=== PATIENT | female | born 1990 | race Caucasian/White ===

== ENCOUNTER 2023-10-30 01:39 | Inpatient (IN) | payer OTHER, SELFPAY ==
[2023-10-29 20:01] VITALS: BP 148/81
[2023-10-29 21:35] VITALS: BMI 25.5
[2023-10-29 21:50] LABS: % Basophils 0.4 % (0-2); % Eosinophils 0.8 % (0-6); % Immature Granulocytes 0.3 % (0-0.5); % Lymphocytes 8.8 % (20.5-51.1); % Monocytes 7.8 % (1.7-9.3); % Neutrophils 81.9 % (42.2-75.2); Absolute Eosinophils 0.1 10^3/uL (0-0.7); Absolute Lymphocytes 0.8 10^3/uL (1.2-3.4); Absolute Monocytes 0.7 10^3/uL (0.1-0.6); Absolute Neutrophils 7.5 10^3/uL (1.4-6.5); Mean Corp Hgb Conc. 36.7 g/dL (33.0-37.0); Mean Corpuscular Hgb 32.1 pg (27.0-31.0); Mean Corpuscular Volume 87.5 fL (81.0-99.0); Mean Platelet Volume 9.9 fL (7.4-10.4); Nucleated Red Blood Cells % 0 %; Platelet Count 183 10^3/uL (130-400); Red Blood Cell Count 3.43 10^6/uL (4.20-5.40); Red Cell Dist. Width 11.2 % (11.5-14.5); White Blood Cell Count 9.2 10^3/uL (4.8-10.8)
[2023-10-29 21:51] LABS: Urine Albumin 1+ (Neg - Trace); Urine Bilirubin Negative (Negative); Urine Character Very Cloudy (Clear); Urine Color Yellow; Urine Glucose Negative (Negative); Urine Ketone Negative (Negative); Urine Leukocyte 2+ (Negative); Urine Nitrite Positive (Negative); Urine Occult Blood 1+ (Negative); Urine Urobilinogen 1+ (Neg - 1+)
[2023-10-29 22:01] LABS: Urine White Cell >100 /HPF (0-5)
[2023-10-29 22:03] LABS: Urine Bacteria Moderate (Negative)
[2023-10-29 22:06] LABS: ALT (SGPT) 28 U/L (0-35); AST (SGOT) 27 U/L (14-36); Albumin 3.7 g/dl (3.5-5.0); Alkaline Phosphatase 54 U/L (38-126); Blood Urea Nitrogen 14 mg/dl (7-17); Calcium 8.5 mg/dl (8.4-10.2); Carbon Dioxide 24 mmol/L (22-30); Chloride 103 mmol/L (98-107); Estimated Creatinine Clearance 88 ml/min; Glucose 114 mg/dl (70-99); Potassium 3.7 mmol/L (3.5-5.1); Sodium 132 mmol/L (135-145); Total Bilirubin 0.8 mg/dl (0.2-1.3); Total Protein 6.4 g/dl (6.3-8.2); eGFR > 60.00
[2023-10-29 22:59] LABS: HCG, Serum Qualitative Screen Negative
[2023-10-29] MEDS: TORADOL 30 MG IV (23:27)
[2023-10-29] MEDS: ZOFRAN 4 MG IV (23:28)
[2023-10-29] MEDS: NSS 1000 IV (23:30)
--- NOTE | 2023-10-29 23:32 | ED.GENMED ---
History of Present Illness
General
Chief Complaint: Back Pain
Source: patient
Exam Limitations: none
Time Seen by Provider: 10/29/23 21:30
Nursing documentation reviewed up to this point in time: agreed with
Travel History
Have you had any contact with someone who has COVID-19?: No
Do you have any symptoms of coronavirus? Fever > 100 degrees, chills, cough, shortness of breath, sore throat, loss of taste or smell, muscle aches, or headache?: No
History of Present Illness
History of Present Illness:
Patient to ED with complaint of bilateral lower back pain. Symptoms started 2 days ago. Reports feeling feverish but did not take temp. +chills. No abdominal pain. States she was admitted her 1.5yrs ago for sepsis due to UTI/kidney stones and
her symptoms now are similar to that event. Brought to ED by spouse for eval. +nausea.
Past History
Past History
ED Past Medical History: HTN, NIDDM and Other (Idiopathic pancreatitis, drug abuse)
Social History
Tobacco: Non-smoker
Alcohol: None
Drug: Narcotics and IVDA
Personal: Single
Phy Exam
General Physical Exam
General Presentation: moderate distress
General age: appears stated age
General Skin: warm and dry
General Habitus: normal
General Mental: alert
Pulmonary Exam
Pulmonary Exam: lungs clear and no respiratory distress
Gastrointestinal Exam
Gastrointestinal Exam: normal bowel sounds, non tender, soft, no organomegaly, no pulsatile mass, non distended and cva tenderness (Bilaterally)
Musculoskeletal Exam
Musculoskeletal Exam: full ROM and neuro vasc intact
Skin Exam
Skin Exam: normal color, warm/dry and no rash
Psychiatric Exam
Psychiatric Exam: normal mood/affect
Course
Orders/Labs/Results
Orders:
Orders
10/29/23 21:43
Complete Blood Count/With Diff Urgent
Comprehensive Metabolic Panel Urgent
HCG, Serum Qualitative Screen Urgent
Comment: ADD ON
Urinalysis Reflex To Culture Urgent
Date Specimen was Collected: 10/29/23
Time Specimen was Collected: 21:40
Urine Microscopic Reflex Cult Urgent
Urine Culture Urgent
CHON Source: U
Specimen Description:
Date Specimen was Collected: 10/29/23
Time Specimen was Collected: 21:40
10/29/23 22:11
CT Abd/pel Without Iv Or Oral Urgent
Comment:
Reason For Exam: flank pain, hx renal stones
10/29/23 22:42
Add On- LAB Urgent
Tests Added?: serum HCG qualitative
10/29/23 23:24
Ketorolac [Toradol] 30 mg IV NOW STA
Ondansetron Injectable [Zofran] 4 mg IV NOW STA
10/29/23 23:30
0.9% Sodium Chloride 1000 ml [Nss] 1,000 ml IV BOLUS
0.9% Sodium Chloride 1000 ml [Nss] 1,000 ml IV BOLUS
10/29/23 23:32
LevoFLOXacin 750 MG/150 ML [Levaquin] 750 mg in 150 ml IV NOW
10/29/23 23:49
Blood Culture Q30M
CHON Source: Blood/Venous
Specimen Description:
10/30/23 00:12
Blood Culture Q30M
CHON Source: Blood/Venous
Specimen Description:
10/30/23 01:09
Admit/Transfer Patient As Directed
Co-Sign Provider:
Level of Care: Inpatient admission
Assign to:: Medical/Surgical
Physician / Group: Jd
Diagnosis: Pyelonephritis
Reason for Hospitalization: Pyelonephritis
Expected length of stay greater than two midnights?: Yes
ELOS- Estimated Length of Stay in days: 2
I certify the patient meets the requirements for IP care: Yes
10/30/23 01:10
Code Status As Directed
Resuscitation Status: Full Code
10/30/23 02:34
0.9% Sodium Chloride 1000 ml [Nss] 1,000 ml IV 125 mls/hr
Acetaminophen [Tylenol] 650 mg PO Q4HPRN PRN
Dextrose 50%-Water [Dextrose 50% Syringe] 12.5 grams IV [id number] PRN
Glucagon [GlucaGen] 1 mg IM PRN PRN
Ketorolac [Toradol] 15 mg IV Q6HPRN PRN
Prochlorperazine [Compazine] 5 mg IV Q6HPRN PRN
10/30/23 02:34
Activity As Directed
Activity Level: Ambulate
Bedside Glucose Monitoring As Directed
Frequency: AC&HS
Comment: Change to q6h if pt on TPN, tube feeding or not eating
I/O [Intake/ Output] As Directed
Frequency: Per unit guidelines
Pneumatic Compression Sleeves As Directed
Type: Knee high
Vital Signs As Directed
Frequency: Per unit guidelines
DX Deep Vein Thrombosis Video Routine
10/30/23 05:44
Basic Metabolic Panel IN AM
Complete Blood Count/No Diff IN AM
Glycohemoglobin (HgbA1c) IN AM
10/30/23 Breakfast
Regular
At Your Request: Limited Participation
10/30/23 07:30
Insulin Aspart Corrective Low [Novolog Flexpen-Low Resistance] See Protocol SC AC
10/30/23 08:00
Sertraline HCl [Zoloft] 50 mg PO DAILY
10/31/23 00:00
LevoFLOXacin 500 MG/100 ML [Levaquin] 500 mg in 100 ml IV Q24H
Abnormal Lab Results
10/29/23
21:43
RBC 3.43 L 10^6/uL
(4.20-5.40)
Hgb 11.0 L g/dL
(12.0-16.0)
Hct 30.0 L %
(37.0-47.0)
MCH 32.1 H pg
(27.0-31.0)
RDW 11.2 L %
(11.5-14.5)
Absolute Neuts (auto) 7.5 H 10^3/uL
(1.4-6.5)
Absolute Lymphs (auto) 0.8 L 10^3/uL
(1.2-3.4)
Absolute Monos (auto) 0.7 H 10^3/uL
(0.1-0.6)
Neutrophils % 81.9 H %
(42.2-75.2)
Lymphocytes % 8.8 L %
(20.5-51.1)
Sodium 132 L mmol/L
(135-145)
Glucose 114 H mg/dl
(70-99)
Ur Occult Blood Reflex 1+ A
(Negative)
Urine Nitrite (Reflex) Positive A
(Negative)
Leukocyte Esterase Rfl 2+ A
(Negative)
Urine RBC 3-6 A /HPF
(0-2)
Urine WBC (Reflex) >100 A /HPF
(0-5)
Urine Bacteria (Reflex) Moderate A
(Negative)
Urine Albumin (Reflex) 1+ A
(Neg - Trace)
10/29/23 21:43
10/29/23 21:43
Vital Signs
Initial and Last Documented VS:
Initial Vital Signs
Temp Pulse Resp BP Pulse Ox
99.0 F 127 18 148/81 97
10/29/23 20:01 10/29/23 20:01 10/29/23 20:01 10/29/23 20:01 10/29/23 20:01
Last Documented Vital Signs
Temp Pulse Resp BP Pulse Ox
98.9 F 105 18 121/74 97
10/30/23 15:00 10/30/23 15:00 10/30/23 15:00 10/30/23 15:00 10/30/23 15:00
*Critical Care Note
Total Time (30-74mins, 75-104mins- exclusive of procedures): Not Applicable
Update Note
Update Note:
Patient to ED wtih complaint of bilateral lower back pain, fever/chills. Vomiting in dept. Temp 100.8 max in ED. UA consistent with UTI. Placed on levaquin in dept. Due to fever/chills, vomiting, will admit to hospitalist at this time.
ED Attending Note
-
Portions of this chart may have been created with voice recognition software.� Occasional wrong word or��sound alike� substitutions may have occurred due to the inherent limitations of voice recognition software.
Discharge Plan
Departure
Patient Disposition: Admit
Date of Disposition: 10/29/23
Time of Disposition: 23:59
Presentation/result/management discussed w/ accepting MD/DO: Hospitalist
Patient with high blood pressure during this ER visit?: No
Condition: Fair
Covid-19: Not Applicable
Discharge Problem:
Pyelonephritis
Interventions
Interventions:
*Risk Screen - Suicide Last Done: 10/30/23 02:14
*General Assessment Last Done: 10/29/23 20:01
*Neglect/Abuse Screening Last Done: 10/29/23 20:01
ED- Fall Risk Assessment Last Done: 10/29/23 21:36
*ED COVID-19 Vaccine History Last Done: 10/29/23 20:01
*Nursing Disposition Last Done: 10/30/23 02:02
ED-Musculoskeletal Assessment Last Done: 10/29/23 23:58
Discharge Date and Time
Discharge Date/Time: 10/30/23 02:02
[2023-10-29 23:55] VITALS: BP 105/55
[2023-10-30] MEDS: LEVAQUIN 150 IV (00:15)
--- NOTE | 2023-10-30 01:13 | HPS.HSE ---
Family Physician
-
Family Physician: Marcus Wilson
Chief Complaint
-
Fevers / chills
History of Present Illness
Patient is a 33y F with PMH significant for nephrolithiasis and pyelonephritis who presents to ED complaining of bilateral flank pain, N/V and fevers / chills. Patient states that her symptoms started yesterday with generalized fatigue and mild
headache. In the evening, she developed shaking chills. Today she noted bilateral flank pain, shaking chills, diaphoresis. In the ED, she had a single episode of N/V.
Patient notes that her symptoms are similar if less severe than those she experienced in 2021 with ureterolithiasis, pyelo and sepsis.
Medical History
Past Medical History
Past Medical History: Reports Other
Additional Past Medical History:
DM-II
Nephrolithiasis
Hypertension
Anxiety / Depression
Pancreatitis
Past Surgical History: Reports Other
Additional Past Surgical History:
Right Ureteroscopy / Stent (2021)
Social History
Tobacco: Vaping (Daily nicotine vaping.)
Alcohol: Former (Sober since 08/2020.)
Drug: Former User (Sober since 08/2020. History of opiate / cocaine use.)
Family History
Family History: Other (PGF / MGF: DM Sister: Aortic Valve Disease Brother: Nephrolithiasis)
Allergies / Home Medications
Allergies reflects when Allergies were last updated in [facility].
Home Medications with original date entered in [facility]
Allergy/Medication List:
Allergies
Allergy/AdvReac Type Severity Reaction Status Date / Time
cephalexin monohydrate Allergy Rash Verified 10/29/23 23:34
[From Keflex]
Home Medications
sertraline 50 mg tablet 50 mg PO DAILY Mental Health/Anxiety 05/03/22
ibuprofen 400 mg tablet 400 mg PO Q6H PRN pain 09/12/22
Wellbutrin XL PO DAILY 10/29/23
tirzepatide 10 mg/0.5 mL subcutaneous pen injector (Mounjaro) 10 mg SC QWEEK 10/29/23
Review of Systems
-
History Source: Patient
A 12 point ROS was completed and negative except as noted: Yes
Constitutional: Reports Fever, Fatigue and Chills
EENT: Denies Sore Throat
Respiratory: Denies Cough or Trouble Breathing
Cardiac: Reports Diaphoresis; Denies Chest Pain or Palpitations
Abdomen/GI: Reports Nausea and Vomiting; Denies Abdominal Pain, Diarrhea, Constipated or Anorexia
: Reports Flank Pain; Denies Dysuria
Musculoskeletal: Denies Joint Pain or Edema
Neurological: Reports Headache; Denies Dizzy
Psych: Denies Depression or Anxiety
Physical Exam
Vital Signs
Vital Signs
Temp Pulse Resp BP Pulse Ox
100.7 F H 118 18 105/55 96
10/29/23 23:35 10/29/23 23:55 10/29/23 23:55 10/29/23 23:55 10/29/23 23:55
Physical Exam
General: Other (33y F in no acute distress.)
HEENT: Moist mucous membranes and PERRLA
Respiratory: Clear; No Wheezes, Rales or Rhonchi
Cardiac: S1/S2 and Regular Rhythm; No Murmur
GI: Soft, Non Distended, Normal Bowel Sounds and Other (Mildly / diffusely tender. No rebound / guarding.)
Genito-urinary: No costovertebral tender
Musculoskeletal: No Clubbing, No Cyanosis and No Edema
Neuro: AO x 3
Laboratory Results
-
10/29/23 21:43
10/29/23 21:43
Laboratory Results
Total Bilirubin 0.8 mg/dl (0.2-1.3) 10/29/23 21:43
AST 27 U/L (14-36) 10/29/23 21:43
ALT 28 U/L (0-35) 10/29/23 21:43
Alkaline Phosphatase 54 U/L (38-126) 10/29/23 21:43
Impression/Plan
-
A/P: Patient is a 33y F with PMH significant for kidney stones who presents to ED complaining of fevers / chills and flank pain.
Pyelonephritis
- Admit for further evaluation and treatment.
- Patient presents with fever, tachycardia and UA suggestive of infection.
- CT shows some stranding - particularly on the R - but no ureteral stones / obstruction / etc.
- IV abx until fever-free x 24 hours.
- Supportive care including antiemetics, pain control (try to avoid opiates), etc.
- Follow for clinical improvement.
- Follow-up culture data and adjust treatment accordingly.
DM-II
- Stable. On only Mounjaro weekly.
- Follow glucose and cover with SSI as needed during stay.
- Update A1C.
Benign Hypertension
- BP is low / normal at present.
- Hold losartan acutely and follow BP for changes.
Anxiety / Depression
- Stable. Continue sertraline.
- Resume Wellbutrin once dose can be confirmed.
DVT Prophylaxis: SCDs
Code Status: Full
[2023-10-30 02:30] VITALS: BP 108/73
[2023-10-30 02:39] VITALS: BMI 24.8
[2023-10-30] MEDS: NSS 1000 IV ×3 (03:17→18:35)
[2023-10-30] MEDS: COMPAZINE 5 MG IV (05:52)
[2023-10-30] MEDS: TORADOL 15 MG IV ×3 (05:52→22:04)
[2023-10-30] MEDS: TYLENOL 650 MG PO ×3 (06:05→22:51)
[2023-10-30 06:10] LABS: Hematocrit 30.6 % (37.0-47.0); Hemoglobin 10.8 g/dL (12.0-16.0); Mean Corp Hgb Conc. 35.3 g/dL (33.0-37.0); Mean Corpuscular Hgb 31.7 pg (27.0-31.0); Mean Corpuscular Volume 89.7 fL (81.0-99.0); Mean Platelet Volume 10.3 fL (7.4-10.4); Platelet Count 175 10^3/uL (130-400); Red Blood Cell Count 3.41 10^6/uL (4.20-5.40); Red Cell Dist. Width 11.2 % (11.5-14.5); White Blood Cell Count 10.5 10^3/uL (4.8-10.8)
[2023-10-30 06:44] LABS: Blood Urea Nitrogen 13 mg/dl (7-17); Calcium 8.2 mg/dl (8.4-10.2); Carbon Dioxide 26 mmol/L (22-30); Chloride 105 mmol/L (98-107); Estimated Creatinine Clearance 88 ml/min; Glucose 114 mg/dl (70-99); Potassium 4.3 mmol/L (3.5-5.1); Sodium 135 mmol/L (135-145); eGFR > 60.00
[2023-10-30 07:38] LABS: Glucose - Point of Care 125 mg/dl (70-99)
[2023-10-30] MEDS: ZOLOFT 50 MG PO (07:39)
[2023-10-30 08:00] VITALS: BP 99/66
[2023-10-30 08:44] LABS: Glycohemoglobin (HgbA1c) 5.4 % (4.0-5.6)
--- NOTE | 2023-10-30 12:04 | CON.ID ---
Consultation
-
Date/Time Consultation Requested: 10/30/23 11:31
Date/Time Consultation Performed: 10/30/23 12:04
Requesting Provider: Dr Patterson
Performing Provider: Dr Recio
Reason for Consultation: fever
Chief Complaint / Past History
Chief Complaint
fever and chills
History of Present Illness
Ms Cagle is a 33 year old female with history of nephrolithiasis/pyelonephritis, pancreatitis, DM2, who presented here today for bilateral flank pain, nausea, vomiting fevers and chills. Syptoms began day before with fatigue and mild headache -
then had rigoros overnight. Today with flank pain chills and then progressed to nausea/vomiting.
Since arrival here Tmax 102.1 orally, bp stable initially stable - soft this afternoon, wbc 9.5 on arrival 10.5 today, hgb 10.8, plt 175, L shift noted on arrival, cr 0.8, hcg neg, ua gross pyuria, moderate bacteria, CT ap without oral or IV
contrast: nonobstructing renal stones, minimal R perinephric stranding, no history of MDROs on file, blood cultures in progress as is the urine culture. H/o rash with keflex - on levofloxacin IV. ID is consulted for assistance with management.
Past History
Additional Past Medical History:
DM-II
Nephrolithiasis
Hypertension
Anxiety / Depression
Pancreatitis
obesity on monjaro
Additional Past Surgical History:
Right Ureteroscopy / Stent (2021)
Allergy History:
cephalexin monohydrate [From Keflex] Allergy (Verified 10/29/23 23:34)
Rash
Medications Reviewed: Yes
Social History
Tobacco: Vaping (daily)
Alcohol: Former
Drug: Former User
Family History
Family History: Not Pertinent
Review of Systems
Review of Systems
General: Fever and Chills
All systems: All other systems were reviewed and were negative
Vital Signs
Temp Pulse Resp BP Pulse Ox
98.0 F 108 16 99/66 98
10/30/23 08:00 10/30/23 08:00 10/30/23 08:00 10/30/23 08:00 10/30/23 08:00
Physical Exam
Physical Exam
Constitutional: No Acute Distress
Cardiovascular: Regular Rate and S1/S2; Negative Murmur or Rub
Pulmonary: Clear and Symmetric; Negative Wheezes, Rales or Rhonchi
Gastrointestinal: Soft, Non Tender, Non Distended and Normal Bowel Sounds
Genito-Urinary: Negative Suprapubic Tenderness or CVA Tenderness
Skin: Warm and Dry; Negative Rash or Jaundice
Lab / Diagnostic Study Results
10/30/23 05:44
10/30/23 05:44
Abs Immat Gran (auto) 0.0 10^3/uL (0-0.05) 10/29/23 21:43
Absolute Neuts (auto) 7.5 10^3/uL (1.4-6.5) H 10/29/23 21:43
Absolute Lymphs (auto) 0.8 10^3/uL (1.2-3.4) L 10/29/23 21:43
Absolute Monos (auto) 0.7 10^3/uL (0.1-0.6) H 10/29/23 21:43
Absolute Basos (auto) 0.0 10^3/uL (0-0.2) 10/29/23 21:43
Immature Gran % 0.3 % (0-0.5) 10/29/23 21:43
Neutrophils % 81.9 % (42.2-75.2) H 10/29/23 21:43
Lymphocytes % 8.8 % (20.5-51.1) L 10/29/23 21:43
Monocytes % 7.8 % (1.7-9.3) 10/29/23 21:43
Eosinophils % 0.8 % (0-6) 10/29/23 21:43
Basophils % 0.4 % (0-2) 10/29/23 21:43
Microbiology Results
Micro:
10/30/23 00:12 Blood Culture - Pending
Blood/Venous
10/29/23 23:49 Blood Culture - Pending
Blood/Venous
10/29/23 21:43 Urine Culture - Pending
Urine
Assessment / Plan
Mild Pyelonephritis
H/o rash with keflex
- 'I feel a lot better'
- follow blood and urine cultures
- agree with levaquin - oral route is equilivant to IV - switched
- check qtc - if <500 then could consider discharge in the am with a 7 day total course
- follow
[2023-10-30 14:19] LABS: Glucose - Point of Care 101 mg/dl (70-99)
[2023-10-30 14:23] LABS: Iron 27 ug/dl (37-170)
[2023-10-30 14:32] LABS: Percent Saturation 9 % (20-50); Total Iron Binding Capacity 284 ug/dl (265-497)
[2023-10-30 15:00] VITALS: BP 121/74
--- NOTE | 2023-10-30 15:07 | W.PN.HOSP.TC ---
Today's Communication/Plan
-
AB
IVF
Need to verify meds
Assessment / Plan
Assessment / Plan
Patient is a 33y F with PMH significant for kidney stones who presents to ED complaining of fevers / chills and flank pain.
#Pyelonephritis
�- CT shows stranding - particularly on the R - but no ureteral stones / obstruction
�- Levaquin 750 daily per ID
�- Supportive care including antiemetics, pain control (try to avoid opiates), etc.
�- Follow for clinical improvement.
�- Follow-up culture data and adjust treatment accordingly.
-History of lithotripsy with stent in the past
- ID eval
#DM-II
�- Stable.� On only Mounjaro weekly.
�- Follow glucose and cover with SSI as needed during stay.
�- Update A1C.
#Benign Hypertension
�- BP is low / normal at present.
�- Hold losartan acutely and follow BP for changes.
#History of pancreatitis in the past
#Anxiety / Depression
�- Stable.� Continue sertraline.
�- Resume Wellbutrin once dose can be confirmed.
#DVT Prophylaxis:� Lovenox
#Code Status:� Full
Anticipated Discharge: 24 - 48 hours
Subjective/Interval History
-
Date of Service: October 30, 2023
Objective Data
-
Labs:
Laboratory Results
10/30/23
05:44
WBC 10.5
Hgb 10.8 L
Hct 30.6 L
Plt Count 175
Sodium 135
Potassium 4.3
Chloride 105
Carbon Dioxide 26
BUN 13
Creatinine 0.8
Glucose 114 H
Calcium 8.2 L
Vital Signs:
Vital Signs
Temp Pulse Resp BP Pulse Ox
98.0 F 108 16 99/66 98
10/30/23 08:00 10/30/23 08:00 10/30/23 08:00 10/30/23 08:00 10/30/23 08:00
[2023-10-30 15:57] LABS: Glucose - Point of Care 114 mg/dl (70-99)
[2023-10-30 16:09] LABS: Vitamin B12 652 pg/ml (239-931)
[2023-10-30] MEDS: LEVAQUIN 750 MG PO (20:07)
[2023-10-30 21:23] LABS: Glucose - Point of Care 117 mg/dl (70-99)
[2023-10-30 23:15] VITALS: BP 124/88
[2023-10-31] MEDS: NSS 1000 IV ×2 (02:03→10:43)
[2023-10-31] MEDS: TORADOL 15 MG IV (07:09)
[2023-10-31] MEDS: ZOLOFT 50 MG PO (07:10)
[2023-10-31] MEDS: LEVAQUIN 750 MG PO (07:10)
[2023-10-31 08:00] VITALS: BP 126/81
[2023-10-31 08:12] LABS: Hematocrit 27.1 % (37.0-47.0); Hemoglobin 9.5 g/dL (12.0-16.0); Mean Corp Hgb Conc. 35.1 g/dL (33.0-37.0); Mean Corpuscular Hgb 31.8 pg (27.0-31.0); Mean Corpuscular Volume 90.6 fL (81.0-99.0); Mean Platelet Volume 10.4 fL (7.4-10.4); Platelet Count 153 10^3/uL (130-400); Red Blood Cell Count 2.99 10^6/uL (4.20-5.40); White Blood Cell Count 9.2 10^3/uL (4.8-10.8)
[2023-10-31 08:17] LABS: Carbon Dioxide 23 mmol/L (22-30)
[2023-10-31 08:38] LABS: Blood Urea Nitrogen 8 mg/dl (7-17); Chloride 108 mmol/L (98-107); Estimated Creatinine Clearance 101 ml/min; Glucose 106 mg/dl (70-99); Potassium 3.7 mmol/L (3.5-5.1); Sodium 133 mmol/L (135-145); eGFR > 60.00
[2023-10-31 11:45] LABS: Glucose - Point of Care 107 mg/dl (70-99)
--- NOTE | 2023-10-31 12:17 | W.PN.HOSP.TC ---
Today's Communication/Plan
-
AB
IV Iron
Watch Temps
If stable will discharge tomorrow
Assessment / Plan
Assessment / Plan
Patient is a 33y F with PMH significant for kidney stones who presents to ED complaining of fevers / chills and flank pain.
CVS: S1-S2 normal
Chest: CTA B/L
Abdomen: Soft, NT / Bowel sounds present
Extremities: No edema, normal pulses
#Pyelonephritis
�- CT shows stranding - particularly on the R - but no ureteral stones / obstruction
�- Levaquin 750 daily per ID
�- Supportive care including antiemetics, pain control (try to avoid opiates), etc.
�- Follow for clinical improvement.
�- Follow-up culture data and adjust treatment accordingly.
- History of lithotripsy with stent in the past
- ID eval appreciated
- Was febrile last night
# Anemia
Iron deficiency noted
-Patient had intentional weight loss where she was trying to lose weight with Mounjaro and also exercise
-She eats a healthy diet
-Periods are heavy in the past 2 days then not.
-Denies any black stools or blood in the stools
-Discussed with the patient about seeing a BRAID PATTERN SETTER doctor and GI doctor as outpatient for further workup of iron deficiency
-Discussed about IV iron she is agreeable to start.
-She was advised to stop ibuprofen which she was taking as needed. ( took 3 days CARE MANAGEMENT SPECIALIST)
#DM-II
�- Stable.� On only Mounjaro weekly.
�- Follow glucose and cover with SSI as needed during stay.
�- Update A1C 5.4.
#Benign Hypertension
�- BP is low / normal at present.
�- Hold losartan 50 mg acutely and follow BP for changes.
#History of pancreatitis in the past
#Anxiety / Depression
�- Stable.� Continue sertraline.
�- Resume Wellbutrin
#DVT Prophylaxis:� Lovenox
#Code Status:� Full
D/W RN
D/W ID
Anticipated Discharge: Within 24 hours
Subjective/Interval History
-
Date of Service: October 31, 2023
Objective Data
-
Labs:
Laboratory Results
10/31/23
07:58
WBC 9.2
Hgb 9.5 L
Hct 27.1 L
Plt Count 153
Sodium 133 L
Potassium 3.7
Chloride 108 H
Carbon Dioxide 23
BUN 8
Creatinine 0.7
Glucose 106 H
Calcium 8.0 L
Vital Signs:
Vital Signs
Temp Pulse Resp BP Pulse Ox
98.3 F 107 18 126/81 98
10/31/23 08:00 10/31/23 08:00 10/31/23 08:00 10/31/23 08:00 10/31/23 08:00
I&O
10/30/23 10/31/23 11/01/23
06:59 06:59 06:59
Intake Total 420 / 420
Balance 420 / 420
[2023-10-31] MEDS: WELLBUTRIN XL (24 hour extended release) 150 MG PO (12:41)
[2023-10-31] MEDS: FERRLECIT 110 MG IV (13:01)
--- NOTE | 2023-10-31 13:53 | W.PN.ID1 ---
Date of Service
Date of Service: October 31, 2023
Today's Communication
c/w levofloxacin
Assessment / Plan
Mild Pyelonephritis
H/o rash with keflex
- urine cx: 100 K e coli
- blood cultures no growth to date
- continue levofloxacin
- follow fever curve and sensitivities
Chief Complaint
-: UTI
Subjective / Review of Systems
fevers ongoing
bp stable
without leukocytosis
cr stable
urine cx: 100 K e coli
blood cultures no growth to date
Vital Signs / Physical Exam
Vital Signs
Vital Signs
Temp Pulse Resp BP Pulse Ox
98.3 F 107 18 126/81 98
10/31/23 08:00 10/31/23 08:00 10/31/23 08:00 10/31/23 08:00 10/31/23 08:00
Physical Exam
Constitutional: No Acute Distress
Cardiovascular: Regular Rate
Pulmonary: Symmetric and Non Labored
Gastrointestinal: Non Distended
Genito-Urinary: Negative Suprapubic Tenderness or CVA Tenderness
Skin: Warm and Dry; Negative Rash or Jaundice
Objective Data
Lab Data
Lab Results
10/31/23 07:58
10/31/23 07:58
Estimated Creat Clear 101 ml/min 10/31/23 07:58
Total Bilirubin 0.8 mg/dl (0.2-1.3) 10/29/23 21:43
AST 27 U/L (14-36) 10/29/23 21:43
ALT 28 U/L (0-35) 10/29/23 21:43
Alkaline Phosphatase 54 U/L (38-126) 10/29/23 21:43
Most recent labs reviewed.
Micro Results:
10/29/23 21:43 Urine Culture - Preliminary
Urine Escherichia coli
10/30/23 00:12 Blood Culture - Preliminary
Blood/Venous No Growth in 24 hours- Final report to follow
10/29/23 23:49 Blood Culture - Preliminary
Blood/Venous No Growth in 24 hours- Final report to follow
--- NOTE | 2023-10-31 15:21 | CM ---
CM following re: d/c planning.
Pt presents with N/V, fever, chills.
ID on board.
CM completed IA with pt.
She states she resides with her family, independent at baseline.
No DME or VN.
PCP is Dr. Wilson and pharmacy is [facility] in [place].
No d/c needs expected.
[2023-10-31 15:48] VITALS: BP 163/106
[2023-10-31] MEDS: TYLENOL 650 MG PO (16:16)
[2023-10-31 22:29] LABS: Glucose - Point of Care 149 mg/dl (70-99)
[2023-10-31 23:00] VITALS: BP 142/84
[2023-11-01 07:49] LABS: Glucose - Point of Care 116 mg/dl (70-99)
[2023-11-01 07:50] VITALS: BP 130/91
[2023-11-01 07:55] LABS: Hematocrit 29.9 % (37.0-47.0); Hemoglobin 10.4 g/dL (12.0-16.0); Mean Corp Hgb Conc. 34.8 g/dL (33.0-37.0); Mean Corpuscular Hgb 31.9 pg (27.0-31.0); Mean Corpuscular Volume 91.7 fL (81.0-99.0); Mean Platelet Volume 10.5 fL (7.4-10.4); Platelet Count 194 10^3/uL (130-400); Red Blood Cell Count 3.26 10^6/uL (4.20-5.40); Red Cell Dist. Width 11.1 % (11.5-14.5); White Blood Cell Count 7.7 10^3/uL (4.8-10.8)
[2023-11-01 08:10] LABS: Blood Urea Nitrogen 11 mg/dl (7-17); Calcium 8.4 mg/dl (8.4-10.2); Carbon Dioxide 24 mmol/L (22-30); Chloride 104 mmol/L (98-107); Estimated Creatinine Clearance 88 ml/min; Glucose 99 mg/dl (70-99); Potassium 3.5 mmol/L (3.5-5.1); Sodium 139 mmol/L (135-145); eGFR > 60.00
[2023-11-01 08:57] LABS: Vitamin D, 25-OH*** 49.3 ng/mL (30-80)
[2023-11-01] MEDS: LEVAQUIN 750 MG PO (08:59)
[2023-11-01] MEDS: ZOLOFT 50 MG PO (08:59)
[2023-11-01] MEDS: WELLBUTRIN XL (24 hour extended release) 150 MG PO (08:59)
--- NOTE | 2023-11-01 11:24 | W.PN.ID1 ---
Date of Service
Date of Service: November 01, 2023
Today's Communication
- continue levofloxacin x 10 days through 11/07
- follow up with PCP stable for dc
Assessment / Plan
Mild Pyelonephritis
H/o rash with keflex
- urine cx: 100 K e coli sensitive to levofloxacin
- blood cultures no growth to date
- continue levofloxacin x 10 days through 11/07
- follow up with PCP stable for dc
Chief Complaint
-: UTI
Subjective / Review of Systems
last borderline fever yesterday afternoon - none overnight
bp stable
without leukocytosis
cr stable
levaquin sensitive to levofloxacin
Vital Signs / Physical Exam
Vital Signs
Vital Signs
Temp Pulse Resp BP Pulse Ox
98.2 F 93 16 130/91 99
11/01/23 07:50 11/01/23 07:50 11/01/23 07:50 11/01/23 07:50 11/01/23 08:55
Physical Exam
Constitutional: No Acute Distress
Cardiovascular: Regular Rate and S1/S2; Negative Murmur or Rub
Pulmonary: Clear and Symmetric; Negative Wheezes or Rales
Gastrointestinal: Soft, Non Tender, Non Distended and Normal Bowel Sounds
Genito-Urinary: Negative Suprapubic Tenderness or CVA Tenderness
Skin: Warm and Dry; Negative Rash or Jaundice
Objective Data
Lab Data
Lab Results
11/01/23 07:22
11/01/23 07:22
Estimated Creat Clear 88 ml/min 11/01/23 07:22
Total Bilirubin 0.8 mg/dl (0.2-1.3) 10/29/23 21:43
AST 27 U/L (14-36) 10/29/23 21:43
ALT 28 U/L (0-35) 10/29/23 21:43
Alkaline Phosphatase 54 U/L (38-126) 10/29/23 21:43
Most recent labs reviewed.
Urine Culture Final 11/01/23-852
CC: Greater than 100,000 CFU/ML Escherichia coli
Organism 1 Escherichia coli
1. Escherichia coli
M.I.C. RX
--------- ---
Amoxicillin/Potas. Clavulanate <=8/4 S
Ampicillin <=8 S
Ampicillin/Sulbactam <=8/4 S
Cefazolin <=2 S
Ertapenem <=0.5 S
Ciprofloxacin <=0.25 S
Gentamicin <=4 S
Levofloxacin <=0.5 S
Meropenem <=1 S
Nitrofurantoin-Urine Only <=32 S
Piperacillin/Tazobactam <=16 S
Tobramycin <=4 S
Trimethoprim/Sulfamethoxazole <=2/38 S
Micro Results:
10/29/23 21:43 Urine Culture - Final
Urine Escherichia coli
10/30/23 00:12 Blood Culture - Preliminary
Blood/Venous No Growth in 48 hours- Final report to follow
10/29/23 23:49 Blood Culture - Preliminary
Blood/Venous No Growth in 48 hours- Final report to follow
Care Review
Plan reviewed with: Physician (Dr Patterson - parth)
[2023-11-01 12:29] LABS: Glucose - Point of Care 148 mg/dl (70-99)
[2023-11-01] MEDS: FERRLECIT 110 MG IV (14:09)
[2023-11-01] MEDS: FLUSH (NSS) 1 FLUSH IV (14:10)
--- NOTE | 2023-11-01 15:03 | W.PN.HOSP.TC ---
Addendum entered and electronically signed by Ronny Patterson MD 11/01/23 15:18:
Side effects of levaquin discussed
Original Note:
Today's Communication/Plan
-
Discharge
Assessment / Plan
Assessment / Plan
Patient is a 33y F with PMH significant for kidney stones who presents to ED complaining of fevers / chills and flank pain.
CVS: S1-S2 normal
Chest: CTA B/L
Abdomen: Soft, NT / Bowel sounds present
Extremities: No edema, normal pulses
#Pyelonephritis
�- CT shows stranding - particularly on the R - but no ureteral stones / obstruction
�- Levaquin 750 daily per ID
�- Afebrile for almost 24 hours now
- History of lithotripsy with stent in the past
- ID eval appreciated
# Anemia
Iron deficiency noted
-Patient had intentional weight loss where she was trying to lose weight with Mounjaro and also exercise
-She eats a healthy diet
-Periods are heavy in the first 2 days then not.
-Denies any black stools or blood in the stools
-Discussed with the patient about seeing a DYNAMITE PACKING MACHINE FEEDER doctor and GI doctor as outpatient for further workup of iron deficiency
-Discussed about IV iron she is agreeable to start.
-She was advised to stop ibuprofen which she was taking as needed. 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
#DM-II
�- Stable.� On only Mounjaro weekly.
�- Follow glucose and cover with SSI as needed during stay.
�- Update A1C 5.4. She is aware may not be accurate with anemia
#Benign Hypertension
�- BP is low / normal at present.
�- Restart losartan 50 mg after dischage
#History of pancreatitis in the past
#Anxiety / Depression
�- Stable.� Continue sertraline.
�- Resume Wellbutrin
#DVT Prophylaxis:� Lovenox
#Code Status:� Full
D/W RN
D/W ID
All follow up care discussed with the patient
Anticipated Discharge: Today
Subjective/Interval History
-
Date of Service: November 01, 2023
Objective Data
-
Labs:
Laboratory Results
11/01/23
07:22
WBC 7.7
Hgb 10.4 L
Hct 29.9 L
Plt Count 194 D
Sodium 139
Potassium 3.5
Chloride 104
Carbon Dioxide 24
BUN 11
Creatinine 0.8
Glucose 99
Calcium 8.4
Vital Signs:
Vital Signs
Temp Pulse Resp BP Pulse Ox
98.2 F 93 16 130/91 99
11/01/23 07:50 11/01/23 07:50 11/01/23 07:50 11/01/23 07:50 11/01/23 08:55
I&O
10/31/23 11/01/23 11/02/23
06:59 06:59 06:59
Intake Total 420 / 420 900 / 1380 480 / 480
Balance 420 / 420 900 / 1380 480 / 480
--- NOTE | 2023-11-01 15:17 | W.DS.TRANS ---
Addendum entered and electronically signed by Ronny Patterson MD 11/01/23 16:32:
Dictation - [id number]
Original Note:
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
-
Discharge Instructions:
Discharge Diagnosis/Procedures Pyelonephritis, anemia, diabetes, anxiety and
depression, small left kidney stone, chronic L3
lumbar spine endplate compression deformity
Diet Diabetic, Carb Controlled
Activity As tolerated
Driving Restrictions As prior to admission
Blood Work CBC in 2 weeks
Stop these medications: Stop ibuprofen. Take Tylenol if you need
anything for pain
Instructions: Anemia Caused by Low Iron, Adult (DC)
Urinary Tract Infection, Adult (DC)
Levofloxacin (Systemic)
Stand-Alone Forms:
Changes to Home Medications: Yes
Discharge Medications:
DC Medications w/original date entered in [facility]
sertraline 50 mg tablet 50 mg PO DAILY Mental Health/Anxiety 05/03/22
tirzepatide 10 mg/0.5 mL subcutaneous pen injector (Mounjaro) 10 mg SC QWEEK Diabetes 10/29/23
bupropion HCl 150 mg 24 hr tablet, extended release 150 mg PO DAILY Pain 10/30/23
ferrous sulfate 325 mg (65 mg iron) tablet 325 mg PO DAILY Supplement #30 tabs 10/31/23
losartan 50 mg tablet 50 mg PO DAILY Diabetes #0 tabs 10/31/23
levofloxacin 750 mg tablet 750 mg PO DAILY #7 tabs 11/01/23
Home Medication Changes
new
Levofloxacin 750 mg tablet 750 mg PO DAILY #7 tabs 11/01/23
ferrous sulfate 325 mg (65 mg iron) tablet 325 mg PO DAILY Supplement #30 tabs 10/31/23
Pending Results: No
--- NOTE | 2023-11-01 16:58 | PN.CDI ---
Addendum entered and electronically signed by Ronny Patterson MD 11/02/23 07:51:
documentation complete
Original Note:
CDI
- -
CDI:
Physician Documentation Request
Admit Date: 10/30/23 01:39
Dear Doctor Yesenia,
H&P states 'Pyelonephritis - Patient presents with fever, tachycardia and UA suggestive of infection.'
T max 10/29 100.7 t max for hospitalization 102.2
10/29 presenting heart rate 127
Please clarify which of the following most accurately describes the status of the patient's infection:
Sepsis
- Systemic manifestations of infection, with 2 or more SIRS criteria which include:
- Fever >100.4 degrees F or hypothermia < 96.8 degrees F
- Leukocytosis - WBC > 12,000 or leukopenia - WBC < 4,000 or > 10% bands
- Tachycardia > 90 beats per minute
- Tachypnea - RR > 20 breaths per minute or PaCO2 , 32mmHg
Source: Merck Manual 2013
Localized Infection Only, Without Systemic Illness
Other
Use of terms such as suspected, likely, concern for, or probable (associated with a specific diagnosis that is being evaluated, monitored, or treated as if it exists) are acceptable and can be coded in the inpatient setting, when documented at the
time of discharge.
Thank you,
Avani Hernandez RN, BSN
CDI Specialist
tiger text
Please use your independent medical judgment in providing your response.
== END 2023-11-01 16:23 | disposition home or self-care (01) | DRG 690 ==
LOC: 4 WEST ACU 01:39
PROVIDERS: Nurse Practitioner; ADMITTING PHYSICIAN Hospitalist; ATTENDING PHYSICIAN Hospitalist; CONSULT PHYSICIAN Student in an Organized Health Care Education/Training Program; EMERGENCY PHYSICIAN Emergency Medicine; FAMILY PHYSICIAN Family Medicine
DX: N12 Tubulo-interstitial nephritis, not specified as acute or chronic (principal); E11.9 Type 2 diabetes mellitus without complications; I10 Essential (primary) hypertension; F32.A Depression, unspecified; F41.9 Anxiety disorder, unspecified; F17.290 Nicotine dependence, other tobacco product, uncomplicated; Z87.442 Personal history of urinary calculi; N20.0 Calculus of kidney; D64.9 Anemia, unspecified
CPT/HCPCS: 74176; 80048; 80053; 81003; 81015; 82306; 82607; 82728; 82962; 83036; 83540; 83550; 84703; 85025; 85027; 87040; 87086; 87088; 87186; 93005; 96365; 96375; 99285; J2916

== ENCOUNTER → 2025-02-22 07:36 | Outpatient (REF) | payer OTHER, SELFPAY | LOC: PNTC 07:36 | PROVIDERS: ATTENDING PHYSICIAN Obstetrics & Gynecology | DX: Z36.0 Encounter for antenatal screening for chromosomal anomalies (principal); Z36.82 Encounter for antenatal screening for nuchal translucency | CPT/HCPCS: 36415; 76801; 76813 ==

== ENCOUNTER → 2025-02-27 09:12 | Outpatient (REF) | payer OTHER, SELFPAY ==
--- NOTE | 2025-02-26 14:26 | PN.DIAED06 ---
Meal Plan - Gestational
- Breakfast
Gestational Diabetes Meal Plan Name: 1800 calories
Breakfast - Total Carbohydrate (grams): 30 (1 carb = 15 grams)
Breakfast - Starch Carbohydrate: 1 (carbs: starch, fruit, milk)
Breakfast - Fruit Carbohydrate: 0 (no fruit or juice before noon)
Breakfast - Milk Carbohydrate: 1
Breakfast - Nonstarchy Vegetables: Yes
Breakfast - Meat/Protein: 1 (1 serving protein = 7 g)
Breakfast - Fat: 2 (1 serving fat = 5 g)
- Morning Snack
Morning Snack - Total Carbohydrate (grams): 30
Morning Snack - Starch Carbohydrate: 1
Morning Snack - Fruit Carbohydrate: 0 (no fruit or juice before lunch)
Morning Snack - Milk Carbohydrate: 1
Morning Snack - Nonstarchy Vegetables: Yes
Morning Snack - Meat/Protein: 0.5
Morning Snack - Fat: 0
- Lunch
Lunch - Total Carbohydrate (grams): 45
Lunch - Starch Carbohydrate: 2
Lunch - Fruit Carbohydrate: 1
Lunch - Milk Carbohydrate: 0
Lunch - Nonstarchy Vegetables: Yes
Lunch - Meat/Protein: 2
Lunch - Fat: 1
- Afternoon Snack
Afternoon Snack - Total Carbohydrate (grams): 30
Afternoon Snack - Starch Carbohydrate: 1
Afternoon Snack - Fruit Carbohydrate: 1
Afternoon Snack - Milk Carbohydrate: 0
Afternoon Snack - Nonstarchy Vegetables: Yes
Afternoon Snack - Meat/Protein: 1
Afternoon Snack - Fat: 0
- Dinner
Dinner - Total Carbohydrate (grams): 45
Dinner - Starch Carbohydrate: 2
Dinner - Fruit Carbohydrate: 0
Dinner - Milk Carbohydrate: 1
Dinner - Nonstarchy Vegetables: Yes
Dinner - Meat/Protein: 2
Dinner - Fat: 2
- Evening Snack
Evening Snack - Total Carbohydrate (grams): 30
Evening Snack - Starch Carbohydrate: 1
Evening Snack - Fruit Carbohydrate: 0
Evening Snack - Milk Carbohydrate: 1
Evening Snack - Nonstarchy Vegetables: Yes
Evening Snack - Meat/Protein: 1
Evening Snack - Fat: 1
--- NOTE | 2025-02-27 10:52 | PTCARENOTE ---
Addendum entered by Luisana Gabriel RN 02/27/25 11:01:
Addendum to previous note. Claudia states she has an endocrinology appointment on 04/03/2025, could not get into an office sooner. I provided her with a list of Endocrinology providers locally, suggested she contact for appointment after
determining if they are in network with her insurance. She is interested in a CGM, has been talking with her insurance company and OBGYN to discuss prior authorization requirements. She will begin checking glucose and also sending BG #'s to her
OBGYN to assist with CGM Rx.
Original Note:
02/27/2025 GESTATIONAL DIABETES CONSULT
Met with patient today for medical nutrition therapy. She is currently at 13 weeks of gestation, with an MAURICIO of 09/04/2025.
She has Type 2 DM, states she has a PMH of substance abuse and pancreatitis, believes the damage to her pancreas aided in developing T2D.
Her last HbA1c on Jan, 2025 was 5.6%, was on Mounjaro. Since discovering her , is no longer on Mounjaro and anticipates needing insulin. She does not check glucose currently but has testing in the past as is proficient.
I provided a sample kit of Contour Next EZ glucometer and 10 test strips, stated we submitted an order to her pharmacy for additional test strips and lancets.
She is currently in recovery, has previously weight trained and her provider stated she can continue without adding additional weight. 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 She is aware and conscious of carbohydrate containing foods,
lower sugar fruits, eat cabohydrate last in meal. States occasional sugar containing snacks and portions are problematic.
Explained glucose metabolism in body and hormonal shifts during to cause increase blood sugar. Discussed importance of keeping BS well controlled to avoid complications to the baby during and after (macrosomia, hypoglycemia,
preeclampsia). She was previously on HTN medication but is not currently taking and BP is WNL. MD monitoring.
Discussed macronutrients, provided with 1800 irvin GDM meal plan.
Reviewed proper testing technique, testing sites and testing pattern. She is aware to test FBS and 2 hr pp each meal. Expected results for FBS <95 mg/dl and 2 hr pp <120 mg/dl. Log sheet provided for her to record results, she will send a 4-day
meal log with all her FBG and 2hr Post prandial glucose numbers to this office for review. In addition, [facility]
She has previously injected insulin (vial and syringe). I educated on insulin pen storage, rotation, and injection technique and she completed a successful self demonstration. She will reach out with any further questions or concerns.
== END ==
LOC: DES 09:12
PROVIDERS: ATTENDING PHYSICIAN Obstetrics & Gynecology
DX: O24.419 Gestational diabetes mellitus in pregnancy, unspecified control (principal)
CPT/HCPCS: 99078

== ENCOUNTER → 2025-03-20 07:01 | Outpatient (REF) | payer OTHER, SELFPAY | LOC: PNTC 07:01 | PROVIDERS: ATTENDING PHYSICIAN Obstetrics & Gynecology | DX: O09.529 Supervision of elderly multigravida, unspecified trimester (principal) | CPT/HCPCS: 76805 ==

== ENCOUNTER → 2025-04-17 07:31 | Outpatient (REF) | payer OTHER, SELFPAY | LOC: PNTC 07:31 | PROVIDERS: ATTENDING PHYSICIAN Obstetrics & Gynecology | DX: O09.529 Supervision of elderly multigravida, unspecified trimester (principal) | CPT/HCPCS: 76811; 76817 ==

== ENCOUNTER → 2025-05-17 08:14 | Outpatient (REF) | payer OTHER, SELFPAY | LOC: PNTC 08:14 | PROVIDERS: ATTENDING PHYSICIAN Obstetrics & Gynecology | DX: O09.529 Supervision of elderly multigravida, unspecified trimester (principal) | CPT/HCPCS: 76816 ==

== ENCOUNTER → 2025-06-11 07:33 | Outpatient (REF) | payer OTHER, SELFPAY | LOC: PNTC 07:33 | PROVIDERS: ATTENDING PHYSICIAN Obstetrics & Gynecology | DX: O09.529 Supervision of elderly multigravida, unspecified trimester (principal) | CPT/HCPCS: 76816 ==

== ENCOUNTER → 2025-07-09 07:33 | Outpatient (REF) | payer OTHER, SELFPAY | LOC: PNTC 07:33 | PROVIDERS: ATTENDING PHYSICIAN Student in an Organized Health Care Education/Training Program | DX: O09.523 Supervision of elderly multigravida, third trimester (principal); O24.113 Pre-existing type 2 diabetes mellitus, in pregnancy, third trimester; O10.013 Pre-existing essential hypertension complicating pregnancy, third trimester; O09.93 Supervision of high risk pregnancy, unspecified, third trimester | CPT/HCPCS: 59025; 76816 ==

== ENCOUNTER → 2025-07-16 07:26 | Outpatient (REF) | payer OTHER, SELFPAY | LOC: PNTC 07:26 | PROVIDERS: ATTENDING PHYSICIAN Obstetrics & Gynecology | DX: O09.523 Supervision of elderly multigravida, third trimester (principal); O24.113 Pre-existing type 2 diabetes mellitus, in pregnancy, third trimester; O10.013 Pre-existing essential hypertension complicating pregnancy, third trimester; O09.93 Supervision of high risk pregnancy, unspecified, third trimester | CPT/HCPCS: 59025; 76815 ==

== ENCOUNTER → 2025-07-19 08:46 | Outpatient (REF) | payer OTHER, SELFPAY | LOC: PNTC 08:46 | PROVIDERS: ATTENDING PHYSICIAN Obstetrics & Gynecology | DX: O24.113 Pre-existing type 2 diabetes mellitus, in pregnancy, third trimester (principal); O09.523 Supervision of elderly multigravida, third trimester; O13.3 Gestational [pregnancy-induced] hypertension without significant proteinuria, third trimester | CPT/HCPCS: 59025 ==

== ENCOUNTER → 2025-07-23 07:36 | Outpatient (REF) | payer OTHER, SELFPAY | LOC: PNTC 07:36 | PROVIDERS: ATTENDING PHYSICIAN Obstetrics & Gynecology | DX: O09.523 Supervision of elderly multigravida, third trimester (principal); O24.113 Pre-existing type 2 diabetes mellitus, in pregnancy, third trimester; O10.013 Pre-existing essential hypertension complicating pregnancy, third trimester; O09.93 Supervision of high risk pregnancy, unspecified, third trimester | CPT/HCPCS: 59025; 76815 ==

== ENCOUNTER 2025-07-26 08:27 | Observation (INO) | payer OTHER, SELFPAY ==
[2025-07-26 09:02] LABS: Hematocrit 30.6 % (37.0-47.0); Hemoglobin 10.7 g/dL (12.0-16.0); Mean Corp Hgb Conc. 35.0 g/dL (33.0-37.0); Mean Corpuscular Volume 93.0 fL (81.0-99.0); Platelet Count 207 10^3/uL (130-400); Red Cell Dist. Width 12.0 % (11.5-14.5)
[2025-07-26 09:10] VITALS: BP 143/88; BMI 34.9
[2025-07-26 09:10] LABS: ALT (SGPT) 42 U/L (0-35); AST (SGOT) 52 U/L (14-36); Albumin 2.9 g/dl (3.5-5.0); Alkaline Phosphatase 92 U/L (38-126); Blood Urea Nitrogen 13 mg/dl (7-17); Calcium 8.7 mg/dl (8.4-10.2); Carbon Dioxide 27 mmol/L (22-30); Chloride 106 mmol/L (98-107); Glucose 109 mg/dl (70-99); Potassium 3.8 mmol/L (3.5-5.1); Sodium 133 mmol/L (135-145); Total Protein 5.8 g/dl (6.3-8.2); Uric Acid 4.3 mg/dl (2.5-6.2); eGFR > 60.00
[2025-07-26 09:37] LABS: Urine Character Clear (Clear)
[2025-07-26 09:53] LABS: Urine Red Blood Cell 0-2 /HPF (0-2)
== END 2025-07-26 10:50 | disposition home or self-care (01) ==
LOC: PNTC-IN 08:27
PROVIDERS: ADMITTING PHYSICIAN Obstetrics & Gynecology; ATTENDING PHYSICIAN Obstetrics & Gynecology
DX: O10.913 Unspecified pre-existing hypertension complicating pregnancy, third trimester (principal); O09.523 Supervision of elderly multigravida, third trimester; O24.113 Pre-existing type 2 diabetes mellitus, in pregnancy, third trimester; Z88.1 Allergy status to other antibiotic agents; Z3A.34 34 weeks gestation of pregnancy; O12.03 Gestational edema, third trimester
CPT/HCPCS: 59025; 80053; 81003; 81015; 82570; 84156; 84550; 85027; G0378

== ENCOUNTER → 2025-07-30 07:36 | Outpatient (REF) | payer OTHER, SELFPAY | LOC: PNTC 07:36 | PROVIDERS: ATTENDING PHYSICIAN Obstetrics & Gynecology | DX: O09.523 Supervision of elderly multigravida, third trimester (principal); O24.113 Pre-existing type 2 diabetes mellitus, in pregnancy, third trimester; O10.013 Pre-existing essential hypertension complicating pregnancy, third trimester; O09.93 Supervision of high risk pregnancy, unspecified, third trimester | CPT/HCPCS: 59025; 76815 ==

== ENCOUNTER → 2025-08-02 08:08 | Outpatient (REF) | payer OTHER, SELFPAY ==
[2025-08-02 08:51] LABS: Urine Character Clear (Clear)
[2025-08-02 08:54] LABS: Hematocrit 32.1 % (37.0-47.0); Hemoglobin 10.8 g/dL (12.0-16.0); Mean Corp Hgb Conc. 33.6 g/dL (33.0-37.0); Mean Corpuscular Volume 91.2 fL (81.0-99.0); Nucleated Red Blood Cells % 0 %; Red Cell Dist. Width 11.9 % (11.5-14.5)
[2025-08-02 09:12] LABS: ALT (SGPT) 37 U/L (0-35); AST (SGOT) 40 U/L (14-36); Albumin 2.9 g/dl (3.5-5.0); Alkaline Phosphatase 111 U/L (38-126); Blood Urea Nitrogen 11 mg/dl (7-17); Calcium 8.2 mg/dl (8.4-10.2); Carbon Dioxide 24 mmol/L (22-30); Chloride 107 mmol/L (98-107); Glucose 98 mg/dl (70-99); Potassium 3.9 mmol/L (3.5-5.1); Sodium 131 mmol/L (135-145); Total Protein 5.9 g/dl (6.3-8.2); eGFR > 60.00
[2025-08-02 09:27] LABS: Urine Squamous Cell 26-30 /LPF (Few)
[2025-08-02 09:28] LABS: Urine Red Blood Cell 0-2 /HPF (0-2)
[2025-08-02 09:49] LABS: Platelet Count 210 10^3/uL (130-400)
== END ==
LOC: PNTC 08:08
PROVIDERS: Obstetrics & Gynecology; ATTENDING PHYSICIAN Obstetrics & Gynecology
DX: O09.523 Supervision of elderly multigravida, third trimester (principal); O24.113 Pre-existing type 2 diabetes mellitus, in pregnancy, third trimester; O10.013 Pre-existing essential hypertension complicating pregnancy, third trimester; O09.93 Supervision of high risk pregnancy, unspecified, third trimester
CPT/HCPCS: 36415; 59025; 80053; 81003; 81015; 82570; 84156; 85025

== ENCOUNTER 2025-08-06 09:41 | Observation (INO) | payer OTHER, SELFPAY ==
[2025-08-06 08:51] LABS: Hematocrit 32.5 % (37.0-47.0); Hemoglobin 11.0 g/dL (12.0-16.0); Mean Corp Hgb Conc. 33.8 g/dL (33.0-37.0); Mean Corpuscular Volume 91.8 fL (81.0-99.0); Platelet Count 213 10^3/uL (130-400); Red Cell Dist. Width 11.8 % (11.5-14.5)
[2025-08-06 08:58] LABS: Urine Character Clear (Clear)
[2025-08-06 09:10] LABS: ALT (SGPT) 35 U/L (0-35); AST (SGOT) 37 U/L (14-36); Albumin 2.9 g/dl (3.5-5.0); Alkaline Phosphatase 107 U/L (38-126); Blood Urea Nitrogen 14 mg/dl (7-17); Calcium 8.6 mg/dl (8.4-10.2); Carbon Dioxide 26 mmol/L (22-30); Chloride 106 mmol/L (98-107); Glucose 145 mg/dl (70-99); Potassium 4.2 mmol/L (3.5-5.1); Sodium 134 mmol/L (135-145); Total Protein 5.7 g/dl (6.3-8.2); eGFR > 60.00
[2025-08-06 09:43] VITALS: BP 140/78; BMI 38.1
[2025-08-06 10:15] LABS: Urine Red Blood Cell 0-2 /HPF (0-2)
== END 2025-08-06 10:34 | disposition home or self-care (01) ==
LOC: PNTC-IN 09:41
PROVIDERS: Obstetrics & Gynecology; ADMITTING PHYSICIAN Obstetrics & Gynecology; ATTENDING PHYSICIAN Student in an Organized Health Care Education/Training Program
DX: O10.913 Unspecified pre-existing hypertension complicating pregnancy, third trimester (principal); Z3A.35 35 weeks gestation of pregnancy; O09.523 Supervision of elderly multigravida, third trimester; O24.113 Pre-existing type 2 diabetes mellitus, in pregnancy, third trimester; O36.63X0 Maternal care for excessive fetal growth, third trimester, not applicable or unspecified; E11.8 Type 2 diabetes mellitus with unspecified complications; Z79.4 Long term (current) use of insulin; Z88.1 Allergy status to other antibiotic agents
CPT/HCPCS: 76816; 80053; 81003; 81015; 82570; 84156; 85027; G0378

== ENCOUNTER → 2025-08-09 07:38 | Outpatient (REF) | payer OTHER, SELFPAY | LOC: PNTC 07:38 | PROVIDERS: ATTENDING PHYSICIAN Obstetrics & Gynecology | DX: O09.523 Supervision of elderly multigravida, third trimester (principal); O24.414 Gestational diabetes mellitus in pregnancy, insulin controlled; O10.113 Pre-existing hypertensive heart disease complicating pregnancy, third trimester | CPT/HCPCS: 59025 ==

== ENCOUNTER → 2025-08-13 07:41 | Outpatient (REF) | payer OTHER, SELFPAY | LOC: PNTC 07:41 | PROVIDERS: ATTENDING PHYSICIAN Obstetrics & Gynecology | DX: O09.523 Supervision of elderly multigravida, third trimester (principal); O24.113 Pre-existing type 2 diabetes mellitus, in pregnancy, third trimester; O10.013 Pre-existing essential hypertension complicating pregnancy, third trimester; O09.93 Supervision of high risk pregnancy, unspecified, third trimester; O36.63X0 Maternal care for excessive fetal growth, third trimester, not applicable or unspecified | CPT/HCPCS: 59025; 76815 ==

== ENCOUNTER 2025-08-14 05:39 | Inpatient (IN) | payer OTHER, SELFPAY ==
[2025-08-14 05:44] VITALS: BMI 38.1
[2025-08-14 05:59] VITALS: BP 160/95
[2025-08-14] MEDS: LR 1000 IV (06:50)
[2025-08-14 06:56] LABS: Glucose - Point of Care 115 mg/dl (70-99)
[2025-08-14 07:07] LABS: Hematocrit 32.0 % (37.0-47.0); Hemoglobin 11.4 g/dL (12.0-16.0); Mean Corp Hgb Conc. 35.6 g/dL (33.0-37.0); Mean Corpuscular Volume 88.6 fL (81.0-99.0); Platelet Count 193 10^3/uL (130-400); Red Cell Dist. Width 11.8 % (11.5-14.5)
[2025-08-14] MEDS: BICITRA 30 ML PO (07:17)
[2025-08-14] MEDS: TYLENOL 975 MG PO (07:17)
[2025-08-14] MEDS: ANCEF 10 IV (07:18)
[2025-08-14 07:23] LABS: ALT (SGPT) 32 U/L (0-35); AST (SGOT) 41 U/L (14-36); Albumin 3.1 g/dl (3.5-5.0); Alkaline Phosphatase 119 U/L (38-126); Blood Urea Nitrogen 17 mg/dl (7-17); Calcium 8.5 mg/dl (8.4-10.2); Carbon Dioxide 20 mmol/L (22-30); Chloride 108 mmol/L (98-107); Estimated Creatinine Clearance 115 ml/min; Glucose 97 mg/dl (70-99); Potassium 4.0 mmol/L (3.5-5.1); Sodium 133 mmol/L (135-145); Total Protein 6.2 g/dl (6.3-8.2); eGFR > 60.00
[2025-08-14] MEDS: NovoLIN R Flexpen 8 UNITS SC (11:36)
[2025-08-14 11:40] LABS: Glucose - Point of Care 199 mg/dl (70-99)
[2025-08-14] MEDS: NOVOLOG FLEXPEN-LOW RESISTANCE 1 UNITS SC (12:21)
[2025-08-14] MEDS: TRANDATE 200 MG PO ×2 (13:15→20:04)
[2025-08-14] MEDS: TORADOL 15 MG IV ×2 (13:56→20:04)
--- NOTE | 2025-08-14 15:56 | PN.DE.MGMTRT ---
Insulin Management
- -
08/14/2025 Diabetes Management Consult
35-year-old G3, P-0-0-1-0 at 37 weeks 0 days with an EDC of 09/04/2025, presented to Labor and Delivery on 08/14/2025 for scheduled elective primary section. PMH type 2 diabetes, chronic hypertension with superimposed preeclampsia without
severe features, history of substance abuse, AMA. Hepatitis C antibody positive. Prior to admission was taking lantus 6 units @ HS and humalog 8 to 10 units AC. A1C ordered for AM tomorrow.
Patient is awake, alert and oriented oob in chair, holding , friend at bedside. Patient states prior to becoming she was taking metformin 1000 mg BID with Mounjaro weekly. Once she learned she was she stopped Mounjaro and
as progressed required insulin. She states she saw an fitter tacker @ [place] in the city. She has a DexCom CGM.
Pre lunch glucose 199, glucose now 300 via sensor. Discussed with patient will resume 6 units lantus @ hs tonight and start novolog 8 units AC with low corrective insulin. Will check 3AM glucose.
Discussed with nurse.
Will follow.
Diabetes History
- -
Type of Diabetes: 2 requiring insulin
Pre-Admission Diabetes Regimen
08/14/25
06:48
Creatinine 0.8
Insulin Pump Settings
IP Diabetes Regimen
08/14/25 08/14/25 08/14/25
06:48 06:55 11:35
Glucose 97
POC Glucose 115 H 199 H
Patient Education
[2025-08-14 16:59] LABS: Glucose - Point of Care 332 mg/dl (70-99)
[2025-08-14] MEDS: NOVOLOG FLEXPEN 8 UNITS SC (17:15)
[2025-08-14] MEDS: NOVOLOG FLEXPEN-LOW RESISTANCE 4 UNITS SC (17:16)
[2025-08-14] MEDS: COLACE 100 MG PO (20:04)
[2025-08-14 21:50] LABS: Glucose - Point of Care 111 mg/dl (70-99)
[2025-08-14] MEDS: LANTUS 0.06 UNITS SC (22:14)
[2025-08-15] MEDS: TORADOL 15 MG IV ×2 (02:01→07:53)
[2025-08-15 03:05] LABS: Glucose - Point of Care 154 mg/dl (70-99)
[2025-08-15 05:19] LABS: Hematocrit 24.4 % (37.0-47.0); Hemoglobin 8.9 g/dL (12.0-16.0); Mean Corp Hgb Conc. 36.5 g/dL (33.0-37.0); Mean Corpuscular Volume 88.7 fL (81.0-99.0); Platelet Count 136 10^3/uL (130-400); Red Cell Dist. Width 11.8 % (11.5-14.5)
[2025-08-15 07:50] LABS: Glucose - Point of Care 95 mg/dl (70-99)
[2025-08-15] MEDS: NOVOLOG FLEXPEN 10 UNITS SC ×3 (07:51→16:34)
[2025-08-15] MEDS: COLACE 100 MG PO ×2 (07:52→20:00)
[2025-08-15] MEDS: TRANDATE 200 MG PO ×2 (07:52→20:00)
[2025-08-15] MEDS: PRENATAL PLUS 1 TABLET PO (07:53)
[2025-08-15 08:10] LABS: Glycohemoglobin (HgbA1c) 6.1 % (4.0-5.9)
--- NOTE | 2025-08-15 08:11 | PN.DE.MGMTRT ---
Insulin Management
- -
08/15/2025 Diabetes Management Consult Follow up
35-year-old G3, P-0-0-1-0 at 37 weeks 0 days with an EDC of 09/04/2025, presented to Labor and Delivery on 08/14/2025 for scheduled elective primary section. PMH type 2 diabetes, chronic hypertension with superimposed preeclampsia without
severe features, history of substance abuse, AMA. Hepatitis C antibody positive. Prior to admission was taking lantus 6 units @ HS and humalog 8 to 10 units AC. A1C ordered for AM tomorrow.
Patient is awake, alert and oriented oob in chair. Patient states prior to becoming she was taking metformin 1000 mg BID with Mounjaro weekly. Once she learned she was she stopped Mounjaro and as progressed required
insulin. She states she saw an front end engineer @ [place] in the city. She has a DexCom CGM.
08/14 Pre lunch glucose 199, glucose @ 3:00pm 300 via sensor, 332 @ 4:49pm. HS glucose 111. Resumed 6 units lantus @ hs tonight and novolog 8 units AC with low corrective insulin.
08/15 3AM glucose 154, fasting glucose 95 A1C 6.1%. Will continue lantus 6 units @ hs, will increase AC novolog to 10 units with low corrective insulin.
Discussed with patient and nurse. Suggested patient make appointment with endocrine she had been seeing for follow up; patient verbalized understanding.
Will follow.
Diabetes History
- -
Type of Diabetes: 2 requiring insulin
Pre-Admission Diabetes Regimen
Lab Results
Hemoglobin A1c 6.1 % (4.0-5.9) H 08/15/25 04:59
Insulin Pump Settings
IP Diabetes Regimen
08/14/25 08/14/25 08/14/25
11:35 16:49 21:48
POC Glucose 199 H 332 H 111 H
08/15/25 08/15/25
03:04 07:49
POC Glucose 154 H 95
Patient Education
[2025-08-15] MEDS: NOVOLOG FLEXPEN-LOW RESISTANCE SC ×2 (11:19→16:41)
[2025-08-15] MEDS: NOVOLOG FLEXPEN-LOW RESISTANCE 10 UNITS SC (11:20)
[2025-08-15 11:32] LABS: Glucose - Point of Care 107 mg/dl (70-99)
[2025-08-15] MEDS: TYLENOL 650 MG PO ×2 (14:42→20:06)
[2025-08-15] MEDS: MOTRIN 600 MG PO ×2 (14:42→22:10)
--- NOTE | 2025-08-15 16:03 | W.PN.ANS.POP ---
Anesthesia Post Operative
- Anesthesia Post Op Note
Vital Signs Stable-See Nursing Note: Yes
Airway Patent: Yes
Adequate Pain Control: Yes
Change in Mental Status: No
Current Postoperative Nausea & Vomiting: No
Anesthesia Complications: No
General Anesthetic Recall: No
Unplanned Admission: No
Post Op Hydration Adequate: Yes
[2025-08-15 16:46] LABS: Glucose - Point of Care 114 mg/dl (70-99)
[2025-08-15 22:04] LABS: Glucose - Point of Care 180 mg/dl (70-99)
[2025-08-15] MEDS: LANTUS 0.06 UNITS SC (22:06)
[2025-08-16] MEDS: TYLENOL 650 MG PO ×4 (00:57→22:09)
[2025-08-16] MEDS: NOVOLOG FLEXPEN 10 UNITS SC ×3 (07:56→17:20)
[2025-08-16] MEDS: COLACE 100 MG PO ×2 (08:02→19:33)
[2025-08-16] MEDS: TRANDATE 200 MG PO (08:02)
[2025-08-16] MEDS: PRENATAL PLUS 1 TABLET PO (08:02)
[2025-08-16] MEDS: MOTRIN 600 MG PO ×3 (08:03→22:10)
[2025-08-16 08:05] LABS: Glucose - Point of Care 82 mg/dl (70-99)
[2025-08-16] MEDS: NOVOLOG FLEXPEN-LOW RESISTANCE SC ×3 (08:12→17:21)
[2025-08-16 12:58] LABS: Glucose - Point of Care 119 mg/dl (70-99)
[2025-08-16 17:26] LABS: Glucose - Point of Care 115 mg/dl (70-99)
[2025-08-16] MEDS: TRANDATE 300 MG PO (19:34)
[2025-08-16 22:05] LABS: Glucose - Point of Care 157 mg/dl (70-99)
[2025-08-16] MEDS: LANTUS 0.06 UNITS SC (22:05)
[2025-08-17] MEDS: PRENATAL PLUS 1 TABLET PO (07:26)
[2025-08-17] MEDS: COLACE 100 MG PO (07:26)
[2025-08-17] MEDS: TRANDATE 300 MG PO (07:27)
[2025-08-17] MEDS: TYLENOL 650 MG PO (07:27)
[2025-08-17] MEDS: MOTRIN 600 MG PO (07:27)
[2025-08-17 07:34] LABS: Glucose - Point of Care 126 mg/dl (70-99)
[2025-08-17] MEDS: NOVOLOG FLEXPEN-LOW RESISTANCE SC ×2 (07:44→12:33)
--- NOTE | 2025-08-17 07:52 | PN.DE.MGMTRT ---
Insulin Management
- -
08/17/2025 Diabetes Management Consult Follow up
35-year-old G3, P-0-0-1-0 at 37 weeks 0 days with an EDC of 09/04/2025, presented to Labor and Delivery on 08/14/2025 for scheduled elective primary section. PMH type 2 diabetes, chronic hypertension with superimposed preeclampsia without
severe features, history of substance abuse, AMA. Hepatitis C antibody positive. Prior to admission was taking lantus 6 units @ HS and humalog 8 to 10 units AC. A1C ordered for AM tomorrow.
Patient is awake, alert and oriented oob in chair. Patient states prior to becoming she was taking metformin 1000 mg BID with Mounjaro weekly. Once she learned she was she stopped Mounjaro and as progressed required
insulin. She states she saw an top collar maker @ [place] in the city. She has a DexCom CGM.
08/16 Received 6 units lantus @ HS with novolog 10 units AC. Glucose range 92 to 157.
08/17 Fasting glucose today 126. Will continue lantus 6 units @ hs, with AC novolog 10 units with low corrective insulin.
Discussed with patient and nurse. Suggested patient make appointment with endocrine she had been seeing for follow up; patient verbalized understanding.
Will follow.
Diabetes History
- -
Type of Diabetes: 2 requiring insulin
Pre-Admission Diabetes Regimen
Lab Results
Hemoglobin A1c 6.1 % (4.0-5.9) H 08/15/25 04:59
Insulin Pump Settings
IP Diabetes Regimen
08/16/25 08/16/25 08/16/25
08:00 12:56 17:24
POC Glucose 82 119 H 115 H
08/16/25 08/17/25
22:04 07:33
POC Glucose 157 H 126 H
Patient Education
[2025-08-17] MEDS: NOVOLOG FLEXPEN 10 UNITS SC ×2 (09:19→12:31)
--- NOTE | 2025-08-17 10:17 | W.DS.TRANS ---
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
-
Discharge Instructions:
Discharge Diagnosis/Procedures primary cs, preeclampsia
Instructions:
Stand-Alone Forms: LDRP Delivery
Changes to Home Medications: No
Discharge Medications:
DC Medications w/original date entered in [facility]
egwipvgn-ssa-Wu-FA 1 mg tablet 1 tab PO DAILY 07/26/25
ibuprofen 600 mg tablet 600 mg PO Q6HPRN PRN cramps #90 tabs 08/17/25
labetalol 100 mg tablet 300 mg (3 x 100 mg) PO BID #180 tabs 08/17/25
Home Medication Changes
Pending Results: No
Total time spent discharging patient (in min): 20
[2025-08-17 16:28] LABS: Syphilis/T. pallidum Ab Reflex Negative (Negative)
== END 2025-08-17 17:25 | disposition home or self-care (01) | DRG 787 ==
LOC: LDRP 05:39
PROVIDERS: ADMITTING PHYSICIAN Obstetrics & Gynecology
PROC: 10D00Z1 Extraction of Products of Conception, Low, Open Approach (ICD-10-PCS; 2025-08-14)
DX: O11.4 Pre-existing hypertension with pre-eclampsia, complicating childbirth (principal); O98.42 Viral hepatitis complicating childbirth; O10.92 Unspecified pre-existing hypertension complicating childbirth; Z3A.37 37 weeks gestation of pregnancy; Z37.0 Single live birth; B19.20 Unspecified viral hepatitis C without hepatic coma; O24.12 Pre-existing type 2 diabetes mellitus, in childbirth; O99.344 Other mental disorders complicating childbirth; F41.9 Anxiety disorder, unspecified; F32.A Depression, unspecified; O99.334 Smoking (tobacco) complicating childbirth; F17.290 Nicotine dependence, other tobacco product, uncomplicated; F11.21 Opioid dependence, in remission; O36.63X0 Maternal care for excessive fetal growth, third trimester, not applicable or unspecified; Z80.3 Family history of malignant neoplasm of breast; Z82.49 Family history of ischemic heart disease and other diseases of the circulatory system; Z83.3 Family history of diabetes mellitus; Z88.1 Allergy status to other antibiotic agents; Z79.82 Long term (current) use of aspirin; Z79.4 Long term (current) use of insulin; Z86.14 Personal history of Methicillin resistant Staphylococcus aureus infection; Z87.442 Personal history of urinary calculi
CPT/HCPCS: 36415; 80053; 80306; 82962; 83036; 85027; 86780; 86850; 86900; 86901; 87070; 88307

== ENCOUNTER 2025-08-21 20:46 | Inpatient (IN) | payer OTHER, SELFPAY ==
[2025-08-21 20:09] VITALS: BP 191/108
--- NOTE | 2025-08-21 20:33 | ED.GENMED ---
History of Present Illness
General
Chief Complaint: Blood Pressure Problem
Source: patient
Exam Limitations: none
Time Seen by Provider: 08/21/25 20:32
Nursing documentation reviewed up to this point in time: agreed with
History of Present Illness
History of Present Illness:
The patient is a pleasant 35-year-old female who underwent a 1 week ago at [facility]. Patient arrives to the ED with complaints of headache and concern for elevated blood pressure. Patient has a history of diabetes and high
blood pressure prior to her . She reports that she was induced at 37 weeks due to preeclampsia. The patient reports that now her headache is better after taking Motrin. She reports that the headache started yesterday and lasted
throughout the night last night and part of the day today. Patient denies chest pain or shortness of breath. Patient reports she has had swelling in both of her legs as well.
Past History
Past History
ED Past Medical History: HTN, NIDDM and Other (Idiopathic pancreatitis, drug abuse)
ED Past Surgical History: Other
Social History
Tobacco: Non-smoker
Alcohol: None
Drug: Narcotics and IVDA
Personal: Single
Living: with family
Employment: Other
Family History
Family History: Other
Review of Systems
Review of Systems
Allergies reviewed?: Yes
All Other Systems: ROS reviewed and negative except as documented in HPI and ROS
Constitutional: Reports fatigue
EENT: Reports no symptoms
Respiratory: Reports no symptoms
Cardiac: Reports no symptoms
ABD/GI: Reports no symptoms
: Reports no symptoms
Musculoskeletal: Reports edema
Neurological: Reports headache
Endocrine: Reports no symptoms
Hematologic/Lymphatic: Reports no symptoms
Psychiatric: Reports no symptoms
Phy Exam
Physical Exam
Physical Exam:
Physical Exam
General: no apparent distress, not acutely ill. Smiling, conversational
Neck: Supple
Heart: Appears well-perfused
Lungs: no acute respiratory distress.
Neuro: alert and oriented. no focal neurological deficits
Skin: no rash
Psychiatric: well kept. interactive and cooperative
Extremities: 1+ pitting edema bilateral lower extremities
Course
Orders/Labs/Results
Orders:
Orders
08/21/25 20:31
EKG [Electrocardiogram (*1)] Urgent
Reason for Study: Other
Other Reason for Exam: htn
Complete Blood Count/No Diff Urgent
Comprehensive Metabolic Panel Urgent
08/21/25 20:32
EKG- Treatment ONCE
Vital Signs
Initial and Last Documented VS:
Initial Vital Signs
Temp Pulse Resp BP Pulse Ox
98.1 F 91 19 191/108 98
08/21/25 20:09 08/21/25 20:09 08/21/25 20:09 08/21/25 20:09 08/21/25 20:09
Last Documented Vital Signs
Temp Pulse Resp BP Pulse Ox
98.1 F 91 19 180/103 98
08/21/25 20:09 08/21/25 20:38 08/21/25 20:09 08/21/25 20:38 08/21/25 20:33
MDM/Problems Addressed
Differential Diagnosis Includes:
Eclampsia, hypertensive urgency, hypertensive emergency
MDM/Problems Addressed:
Patient presents with acute headache and elevated blood pressure
Chronic conditions affecting care: HTN
Acute Exacerbation and/or Progression of Chronic Illness:
Patient has acute exacerbation of/progression of eclampsia and baseline high blood pressure
*Pulse Oximetry
SaO2: 98
Oxygen Mode of Delivery: Room air
Patient hypoxic: no
*EKG
Interpreted by ED Provider?: Yes
Interpretation: normal
Comparison EKG: no comparison EKG present
Rate: normal
Rhythm: sinus
[place]: normal axis
Interval: normal interval
QRS Pattern: normal QRS
Ischemia: no ischemia
*All Around Presser Interpretation
Rate: normal
Interpretation: normal
Rhythm: sinus
*Critical Care Note
Total Time (30-74mins, 75-104mins- exclusive of procedures): Not Applicable
Data Reviewed
Review of Other/Old Records Reveals: Operative Reports ( operative report reviewed by me from last week)
Source: patient
Patient Management
Social determinants of health affecting care: Living situation and Strong social support
Discussion with other providers: Other (Shortly after patient arrival in triage, I Mcgrath texted Dr. Combs who felt patient should come right up to labor and delivery triage)
ED Attending Note
-
Portions of this chart may have been created with voice recognition software.� Occasional wrong word or��sound alike� substitutions may have occurred due to the inherent limitations of voice recognition software.
Discharge Plan
Departure
Patient Disposition: Other
Date of Disposition: 08/21/25
Time of Disposition: 20:45
Patient with high blood pressure during this ER visit?: Yes
Condition: Fair
Covid-19: Not Applicable
Discharge Problem:
Pre-eclampsia in period
Prescriptions:
No Action
nkaikjwc-rmk-Dm-FA 1 mg Tablet
1 tab PO DAILY
ibuprofen 600 mg Tablet
600 mg PO Q6HPRN PRN (Reason: cramps) Qty: 90 0RF
labetalol 100 mg Tablet
300 mg PO BID Qty: 180 0RF
naloxone [Narcan] 4 mg/actuation spray,non-aerosol
4 mg intranasal Q2M PRN (Reason: opioid overdose) 30 Days Qty: 2 0RF
Interventions
Interventions:
*Risk Screen - Suicide Last Done: 08/21/25 20:13
*General Assessment Last Done: 08/21/25 20:13
*Neglect/Abuse Screening Last Done: 08/21/25 20:13
*ED COVID-19 Vaccine History Last Done: 08/21/25 20:13
*ED Influenza Vaccine History Last Done: 08/21/25 20:13
Discharge Date and Time
Print Language: GUATEMALAN
[2025-08-21 20:38] VITALS: BP 180/103
[2025-08-21 20:45] LABS: Hematocrit 28.5 % (37.0-47.0); Hemoglobin 9.6 g/dL (12.0-16.0); Mean Corp Hgb Conc. 33.7 g/dL (33.0-37.0); Mean Corpuscular Volume 91.6 fL (81.0-99.0); Platelet Count 276 10^3/uL (130-400); Red Cell Dist. Width 11.7 % (11.5-14.5)
[2025-08-21 20:56] VITALS: BMI 35.1
[2025-08-21 21:03] LABS: ALT (SGPT) 46 U/L (0-35); AST (SGOT) 48 U/L (14-36); Albumin 3.2 g/dl (3.5-5.0); Alkaline Phosphatase 88 U/L (38-126); Blood Urea Nitrogen 23 mg/dl (7-17); Calcium 8.3 mg/dl (8.4-10.2); Carbon Dioxide 25 mmol/L (22-30); Chloride 108 mmol/L (98-107); Estimated Creatinine Clearance 88 ml/min; Glucose 109 mg/dl (70-99); Potassium 4.1 mmol/L (3.5-5.1); Sodium 135 mmol/L (135-145); Total Protein 6.4 g/dl (6.3-8.2); eGFR > 60.00
[2025-08-21 21:07] VITALS: BP 158/85
[2025-08-21 21:32] LABS: Urine Character Clear (Clear)
[2025-08-21 21:39] LABS: Urine Squamous Cell 16-20 /LPF (Few)
[2025-08-21] MEDS: TRANDATE 300 MG PO (21:46)
[2025-08-21] MEDS: LANTUS 0.06 UNITS SC (21:56)
[2025-08-21] MEDS: MAGNESIUM SULFATE 100 IV (22:20)
[2025-08-21] MEDS: NSS 1000 IV (22:34)
[2025-08-21] MEDS: MAGNESIUM SULFATE 40 GRAM 1000 IV (22:48)
[2025-08-22] MEDS: TYLENOL 650 MG PO ×4 (01:36→18:02)
[2025-08-22 06:43] LABS: Hematocrit 28.1 % (37.0-47.0); Hemoglobin 9.8 g/dL (12.0-16.0); Mean Corp Hgb Conc. 34.9 g/dL (33.0-37.0); Mean Corpuscular Volume 92.1 fL (81.0-99.0); Platelet Count 312 10^3/uL (130-400); Red Cell Dist. Width 11.7 % (11.5-14.5)
[2025-08-22 08:00] LABS: ALT (SGPT) 46 U/L (0-35); AST (SGOT) 46 U/L (14-36); Albumin 3.1 g/dl (3.5-5.0); Alkaline Phosphatase 100 U/L (38-126); Blood Urea Nitrogen 21 mg/dl (7-17); Calcium 7.2 mg/dl (8.4-10.2); Carbon Dioxide 24 mmol/L (22-30); Chloride 107 mmol/L (98-107); Estimated Creatinine Clearance 110 ml/min; Glucose 109 mg/dl (70-99); Magnesium 5.3 mg/dl (1.6-2.3); Potassium 4.2 mmol/L (3.5-5.1); Sodium 134 mmol/L (135-145); Total Protein 6.2 g/dl (6.3-8.2); eGFR > 60.00
[2025-08-22] MEDS: PRENATAL PLUS 1 TABLET PO (08:05)
[2025-08-22] MEDS: TRANDATE 300 MG PO ×2 (08:05→19:52)
[2025-08-22] MEDS: MOTRIN 600 MG PO ×3 (08:10→19:53)
[2025-08-22 08:47] LABS: Glucose - Point of Care 138 mg/dl (70-99)
[2025-08-22] MEDS: NOVOLOG FLEXPEN 10 UNITS SC ×3 (08:47→18:03)
[2025-08-22] MEDS: NSS 1000 IV (12:00)
--- NOTE | 2025-08-22 12:38 | PN.DE.MGMTRT ---
Insulin Management
- -
08/22/2025. Diabetes Management Consult
35 year old patient admitted due to prolonged headache and elevated blood pressure. H Patient delivered by csection 08/14/2025, chronic HTN, pancreatitis, drug abuse hx 4 years sober, chronic hepatitis C. Prior to admission and during last
admission patient receiving 10 units novolog AC with 6 units lantus @ HS. (Prior to had also been taking Mounjaro. A1C 6.1% 08/15, cr .8, eGFR > 60.
Patient is awake, alert and oriented resting in bed. Able to discuss diabetes care. States since discharge to home has been taking above doses of insulin, experienced no hypoglycemia and overall good control.
08/21 HS glucose 109 received 6 units lantus @ HS.
08/22 Fasting glucose 109
Will continue lantus 6 units @ HS with novolog 10 units AC
Discussed with nurse.
Will follow.
Diabetes History
- -
Type of Diabetes: 2 requiring insulin
Pre-Admission Diabetes Regimen
08/21/25 08/22/25
20:36 06:16
Creatinine 1.0 0.8
Insulin Pump Settings
IP Diabetes Regimen
08/21/25 08/22/25 08/22/25
20:36 06:16 08:46
Glucose 109 H 109 H
POC Glucose 138 H
Patient Education
[2025-08-22 13:19] LABS: Glucose - Point of Care 153 mg/dl (70-99)
[2025-08-22] MEDS: NOVOLOG FLEXPEN-LOW RESISTANCE 1 UNITS SC (13:44)
[2025-08-22] MEDS: MAGNESIUM SULFATE 40 GRAM 1000 IV (15:35)
[2025-08-22 17:51] LABS: Glucose - Point of Care 114 mg/dl (70-99)
[2025-08-22] MEDS: LASIX 20 MG PO (19:30)
[2025-08-22] MEDS: LANTUS 0.06 UNITS SC (22:14)
[2025-08-22 22:20] LABS: Glucose - Point of Care 151 mg/dl (70-99)
[2025-08-22] MEDS: NSS IV (22:30)
[2025-08-23] MEDS: MOTRIN 600 MG PO ×3 (02:09→15:46)
[2025-08-23 07:38] LABS: Glucose - Point of Care 97 mg/dl (70-99)
[2025-08-23] MEDS: NOVOLOG FLEXPEN 10 UNITS SC ×3 (08:13→16:55)
[2025-08-23] MEDS: LASIX 20 MG PO (08:14)
[2025-08-23] MEDS: TRANDATE 300 MG PO ×3 (08:15→22:10)
[2025-08-23] MEDS: PRENATAL PLUS 1 TABLET PO (08:16)
--- NOTE | 2025-08-23 11:49 | PN.DE.MGMTRT ---
Insulin Management
- -
08/23/2025. Diabetes Management Consult Follow up
35 year old patient admitted due to prolonged headache and elevated blood pressure. H Patient delivered by csection 08/14/2025, chronic HTN, pancreatitis, drug abuse hx 4 years sober, chronic hepatitis C. Prior to admission and during last
admission patient receiving 10 units novolog AC with 6 units lantus @ HS. (Prior to had also been taking Mounjaro). A1C 6.1% 08/15, cr .8, eGFR > 60.
Patient is awake, alert and oriented resting in bed. Able to discuss diabetes care. States since discharge to home has been taking above doses of insulin, experienced no hypoglycemia and overall good control. Blood pressure improved 132/82.
08/22 Fasting glucose 109, glucose range 109 to 153.
08/23 Fasting glucose 97.
Will continue lantus 6 units @ HS with novolog 10 units AC
Discussed with nurse.
Will follow.
Diabetes History
- -
Type of Diabetes: 2 requiring insulin
Pre-Admission Diabetes Regimen
Insulin Pump Settings
IP Diabetes Regimen
08/22/25 08/22/25 08/22/25
13:13 17:49 22:11
POC Glucose 153 H 114 H 151 H
08/23/25
07:36
POC Glucose 97
Patient Education
[2025-08-23 11:58] LABS: Glucose - Point of Care 108 mg/dl (70-99)
[2025-08-23 16:51] LABS: Glucose - Point of Care 154 mg/dl (70-99)
[2025-08-23] MEDS: NOVOLOG FLEXPEN-LOW RESISTANCE 1 UNITS SC (16:55)
[2025-08-23 22:14] LABS: Glucose - Point of Care 122 mg/dl (70-99)
[2025-08-23] MEDS: LANTUS 0.06 UNITS SC (22:14)
[2025-08-24] MEDS: PRENATAL PLUS 1 TABLET PO (07:57)
[2025-08-24] MEDS: LASIX 20 MG PO (07:57)
[2025-08-24] MEDS: TRANDATE 300 MG PO (07:58)
[2025-08-24] MEDS: NOVOLOG FLEXPEN 10 UNITS SC (08:07)
[2025-08-24 08:13] LABS: Glucose - Point of Care 184 mg/dl (70-99)
[2025-08-24] MEDS: NOVOLOG FLEXPEN-LOW RESISTANCE 1 UNITS SC (08:16)
--- NOTE | 2025-08-24 08:34 | PN.DE.MGMTRT ---
Insulin Management
- -
08/24/2025: Diabetes Management Follow up
35 year old patient admitted due to prolonged headache and elevated blood pressure. PMH: Patient delivered by 08/14/2025, chronic HTN, pancreatitis, drug abuse hx 4 years sober, chronic hepatitis C. Prior to admission and during last
admission patient receiving 10 units NovoLog AC with 6 units Lantus @ HS. (Prior to had also been taking Mounjaro). States since discharge to home has been taking above doses of insulin, experienced no hypoglycemia and overall good
control. A1C 6.1% 08/15, cr .8, eGFR > 60.
Patient is awake, alert and oriented sitting up @edge of bed, able to discuss diabetes care. Dad at bedside with Baby.
08/23 Blood pressure improved to 132/82, today 148/66
08/23 Fasting glucose 97, glucose range 108 to 154.
08/24 Fasting glucose 184.
Will continue Lantus 6 units @ HS with NovoLog 10 units AC
Discussed with nurse. Will cont to follow.
Diabetes History
- -
Type of Diabetes: 2 requiring insulin
Pre-Admission Diabetes Regimen
Insulin Pump Settings
IP Diabetes Regimen
08/23/25 08/23/25 08/23/25
11:57 16:49 22:13
POC Glucose 108 H 154 H 122 H
08/24/25
08:10
POC Glucose 184 H
Patient Education
--- NOTE | 2025-08-24 12:29 | CON.CAR ---
Addendum entered and electronically signed by Jane Lopez MD 08/24/25 15:27:
I saw and evaluated the patient, and I provided the substantive portion of the medical decision making.
I reviewed and agree with the note by AMANDA Rodriguez and it accurately reflects our care.
I personally performed the medical decision making of the this encounter and my assessment and plan is below:
35-year-old female with a history of vzl-bklwita-buingraed diabetes and hypertension presented with preeclampsia after delivery of a boy on 08/14/2025. We are asked to comment on medications to help with discharge. She is feeling
better, she has no complaints. Prior to her she was on an ARB. This was transitioned appropriately given . Initially she did not require agents and now is back on labetalol which has been increased to 300 mg p.o. 3 times daily.
She also received some Lasix for lower extremity edema. Today, there was concern as blood pressure spiked after arguing with her boyfriend.
she has a regular rate and rhythm with a normal S1-S2 no murmur rubs gallops were appreciated lungs were clear to auscultation bilaterally extremities show trace edema bilaterally
Assessment:
Preeclampsia
Chronic hypertension
Noncompliant diabetes
Plan:
Labetalol 3 times daily not a good option for outpatient, will transition to twice daily dosing on an increased dose.
No need to continue Lasix
Will give her hydralazine as needed to help control spikes in blood pressure as she seems to have been very reactive.
We reviewed the appropriate way to check her blood pressure at home.
She will avoid salt.
No contraindication to discharge with follow-up.
Original Note:
Consultation
Consultation Request
Date/Time Consultation Requested: 08/24/25 8:30a
Date/Time Consultation Performed: 08/24/25 11:30a
Requesting Provider: Dr. Sarabia
Performing Provider: AMANDA Rodriguez for Dr. Lopez
Reason for Consultation: HTN
Medical History
-
Chief Complaint: HTN/preeclampsia
History of Present Illness:
Ms. Cagle is a 35 yo female with NIDDM and HTN, who is here for preeclampsia post . She delivered a healthy baby boy on 08/14/25 via and had preeclampsia. She was discharged home on Labetalol 300mg BID and reports compliance with
meds at home. She noted elevated BP at home with headache and therefore she came into the hopsital. She was admitted and Labetalol was increased to 300mg TID, with improvement of BP. She also had LE edema and was given Lasix 20mg daily. This am
she had an argument on the phone with her boyfriend then her BP was elevated. We were then consulted for HTN.
Past Medical History
Past Medical History: Other (as above)
Past Surgical History: (08/14/25)
Social History
Tobacco: Non-Smoker
Personal: Partner
Living: With Family
Family History
Family History: Reviewed & Not Pertinent
Allergies / Home Medications
Allergy/AdvReac Type Severity Reaction Status Date / Time
cephalexin monohydrate (From Allergy Rash Verified 08/21/25 20:52
Keflex)
�Medication �Instructions �Recorded �Confirmed �Type
irghfckv-jji-[id number]-FA 1 mg 1 tab PO DAILY 07/26/25 08/21/25 History
tablet
ibuprofen 600 mg tablet 600 mg PO Q6HPRN PRN cramps #90 08/17/25 08/21/25 Rx
tabs
labetalol 100 mg tablet 300 mg (3 x 100 mg) PO BID #180 08/17/25 08/21/25 Rx
tabs
acetaminophen 325 mg tablet 650 mg PO Q4H PRN headache 08/21/25 08/21/25 History
(Tylenol)
insulin glargine 100 unit/mL 6 unit SC HS 08/21/25 08/21/25 History
subcutaneous cartridge
insulin lispro 100 unit/mL 10 unit SC TID 08/21/25 08/21/25 History
subcutaneous pen
Review of Systems
-
History Source: Patient
All other systems: Negative unless noted
Physical Exam
Vital Signs
Temp Pulse Resp BP Pulse Ox
97.7 F 89 18 148/66 98
08/21/25 21:07 08/24/25 07:57 08/21/25 21:07 08/24/25 07:58 08/21/25 20:33
Lab Results
08/22/25 06:16
08/22/25 06:16
Physical Exam
General: Well Developed, Well Nourished and No Apparent Distress
HEENT: Normocephalic, Anicteric and Moist Mucous Membranes
Respiratory: Clear and Non Labored Respirations
Cardiac: S1/S2 and Regular Rhythm
Breast: Deferred by me
GI: Soft and Non Tender
Rectal: Deferred by Provider
Genito-urinary: Clear Urine
Musculoskeletal: No Edema
Skin: Warm and Dry
Neuro: AO x 3
Hematologic/Lymphatic: No Lymphadenopathy
Psych: Calm
Impression / Plan
-
Preeclampsia - post .
- improved with increased Labetalol.
- manual BP 148/60, checked by myself during exam.
- will increase and switch to BID, 500mg BID.
- monitor BP at home, if SBP is > 160mmHg, then will take Hydralazine 10mg.
- follow up in our office as outpatient.
HTN - previously on Losartan 50mg daily prior to .
- she also tried Nifedipine in 2020 but it caused a headache.
- continue Labetalol and will use Hydralazine PRN.
DM - stable currently on insulin, continue.
Data Reviewed
-
Labs: Labs Reviewed by me
[2025-08-24] MEDS: NOVOLOG FLEXPEN-LOW RESISTANCE SC (14:20)
[2025-08-24] MEDS: NOVOLOG FLEXPEN SC (14:22)
--- NOTE | 2025-08-24 17:03 | W.DS.TRANS ---
DC Summary - Social Research Assistant
-
Discharge Instructions:
Discharge Diagnosis/Procedures pre-eclampsia, type 2 diabetes,
chronic hypertension, s/p delivery
Instructions:
Stand-Alone Forms: [facility] Hypertensive Disorders
Changes to Home Medications: No
Discharge Medications:
DC Medications w/original date entered in Reactivity
gcwelrvr-[id number] 1 mg tablet 1 tab PO DAILY 07/26/25
ibuprofen 600 mg tablet 600 mg PO Q6HPRN PRN cramps #90 tabs 08/17/25
acetaminophen 325 mg tablet (Tylenol) 650 mg PO Q4H PRN headache 08/21/25
insulin glargine 100 unit/mL subcutaneous cartridge 6 unit SC HS 08/21/25
insulin lispro 100 unit/mL subcutaneous pen 10 unit SC TID 08/21/25
hydralazine 10 mg tablet 10 mg PO PRN PRN take for BP 160/110 #30 tabs 08/24/25
labetalol 200 mg tablet 500 mg (2.5 x 200 mg) PO BID #30 tabs 08/24/25
Home Medication Changes
Pending Results: No
Total time spent discharging patient (in min): 30
== END 2025-08-24 15:34 | disposition home or self-care (01) | DRG 776 ==
LOC: LDRP 20:46
PROVIDERS: ADMITTING PHYSICIAN Obstetrics & Gynecology; CONSULT PHYSICIAN Internal Medicine Cardiovascular Disease; EMERGENCY PHYSICIAN Emergency Medicine
DX: O14.15 Severe pre-eclampsia, complicating the puerperium (principal); O24.13 Pre-existing type 2 diabetes mellitus, in the puerperium; Z79.4 Long term (current) use of insulin; Z91.199 Patient's noncompliance with other medical treatment and regimen due to unspecified reason
CPT/HCPCS: 80053; 81003; 81015; 82570; 82962; 83735; 84156; 85027; 93005; 99283